=== PATIENT | female | born 1940 | race Caucasian/White ===

== ENCOUNTER 2018-05-20 15:24 | Outpatient (CLI) | payer MEDICARE, OTHER | END 2018-05-20 15:25 | disposition home or self-care (01) | LOC: DI 15:24 | PROVIDERS: ATTEND Family Medicine | DX: Z12.31 Encounter for screening mammogram for malignant neoplasm of breast (principal) | CPT/HCPCS: 77067 ==

== ENCOUNTER 2020-03-01 12:56 | Outpatient (CLI) | payer MEDICARE, OTHER ==
[2020-03-01 20:15] LABS: BASOPHILS # (AUTO) 0.1 10^3/uL (0.0-0.1); EOSINOPHILS # (AUTO) 0.1 10^3/uL (0.0-0.7); EOSINOPHILS % (AUTO) 1.5 %; HGB - HEMOGLOBIN 15.2 g/dL (12.0-16.0); LYMPHOCYTES # (AUTO) 1.4 10^3/uL (1.5-3.5); LYMPHOCYTES % (AUTO) 23.8 %; MEAN CORPUSCULAR HEMOGLOBIN 32.5 pg (27.0-31.0); MEAN CORPUSCULAR HGB CONC 33.6 g/dL (32.0-36.0); MEAN PLATELET VOLUME 10.1 fL (7.9-10.8); MONOCYTES # (AUTO) 0.5 10^3/uL (0.0-1.0); MONOCYTES % (AUTO) 9.2 %; NEUTROPHILS # (AUTO) 3.8 10^3/uL (1.5-6.6); NEUTROPHILS % (AUTO) 64.2 %; PLT - PLATELET COUNT 215 10^3/uL (130-450); RED BLOOD COUNT 4.67 10^6/uL (4.20-5.40); RED CELL DISTRIBUTION WIDTH 13.1 % (12.0-15.0); WHITE BLOOD COUNT 5.9 x10^3/uL (4.8-10.8)
[2020-03-01 20:26] LABS: ALBUMIN 4.3 g/dL (3.2-5.5); ALBUMIN/GLOBULIN RATIO 1.7 (1.0-2.2); ALKALINE PHOSPHATASE 75 IU/L (42-121); ALT ALANINE AMINOTRANSFERASE 20 IU/L (10-60); AST ASPARTATE AMINOTRANSFERASE 17 IU/L (10-42); BUN - BLOOD UREA NITROGEN 19 mg/dL (6-20); CALCIUM 9.2 mg/dL (8.5-10.3); CARBON DIOXIDE - CO2 27 mmol/L (21-32); CHLORIDE 103 mmol/L (101-111); CHOL/HDL RATIO 5.1 (<4.4); CHOLESTEROL 253 mg/dL; CREATININE 0.9 mg/dL (0.4-1.0); GLUCOSE 92 mg/dL (70-100); HDL CHOLESTEROL 50 mg/dL; LDL CHOLESTEROL,CALCULATED 171 mg/dL; LDL/HDL RATIO 3.4 (<4.4); SODIUM 139 mmol/L (135-145); TOTAL PROTEIN 6.9 g/dL (6.7-8.2); VLDL CHOLESTEROL 32 mg/dL
[2020-03-01 20:40] LABS: FERRITIN 139.4 ng/mL (11.0-306.8)
== END 2020-03-01 12:57 | disposition home or self-care (01) ==
LOC: LAB.S 12:56
PROVIDERS: ATTEND Nurse Practitioner Family
DX: R07.9 Chest pain, unspecified (principal); I10 Essential (primary) hypertension; G60.9 Hereditary and idiopathic neuropathy, unspecified; E78.5 Hyperlipidemia, unspecified
CPT/HCPCS: 36415; 80053; 80061; 82607; 82728; 83721; 84443; 85025

== ENCOUNTER 2020-03-18 12:05 | Outpatient (CLI) | payer MEDICARE, OTHER ==
[2020-03-18 17:05] LABS: CALCIUM 9.5 mg/dL (8.5-10.3); CREATININE 0.9 mg/dL (0.4-1.0)
== END 2020-03-18 12:06 | disposition home or self-care (01) ==
LOC: LAB.S 12:05
DX: I10 Essential (primary) hypertension (principal)
CPT/HCPCS: 36415; 80048

== ENCOUNTER 2020-05-01 10:25 | Emergency (ER) | payer MEDICARE, OTHER ==
--- NOTE | 2020-05-01 13:28 | XRAY Report ---
PROCEDURE: Chest 1 View X-Ray INDICATIONS: Chest Pain TECHNIQUE: One view of the chest was acquired. COMPARISON: None. FINDINGS: Surgical changes and devices: None. Lungs and pleura: No pleural effusions or pneumothorax. Lungs are clear. Mediastinum: Mediastinal contours appear normal. Heart size is normal. Bones and chest wall: No suspicious bony lesions. Overlying soft tissues appear unremarkable. IMPRESSION: Chest without acute cardiopulmonary abnormalities. No focal airspace disease. Reviewed by: Floyd Wayne MD on 05/01/2020 1:27 PM PDT Approved by: Floyd Wayne MD on 05/01/2020 1:27 PM PDT Station ID: [id number]
--- NOTE | 2020-05-01 13:48 | ED Physician Documentation ---
History of Present Illness - Stated complaint Stated Complaint: DIZZINESS/HIGH HR - Chief complaint Chief Complaint: Neuro - Additonal information Additional information: 79-year-old female presents to the emergency department for evaluation of dizziness and concerns of elevated high blood pressure especially at nighttime. She reports that last night she got up to go to the restroom and was unable to walk without assistance from her or holding onto the wall because she felt dizzy. She states that recently she has been having problems with an elevated blood pressure especially at night. She states that last week she did have a stress test and was told that she had some minor blockage in her heart that would not require stenting or CABG. She reports compliance with her medications. She denies that she has chest pain at present but she does endorse a minor headache pt is noted to be in atrial fibrillation here in the ED. states that she has occasionally been in fib, but is not on anticoagulation. when pt got up to ambulate to the bathroom and returned, she was then in sinus rythm Cardiology: Zay () PCP: Dr. Baum ([facility] [place]) meds: hctz 25 mg qd atenolol 25 mg bid amlodipine 5 mg BID Statin qd asa 81 mg qd PD PAST MEDICAL HISTORY - Past Medical History Past Medical History: Yes Cardiovascular: Hypertension, High cholesterol, Other Respiratory: None Neuro: None Endocrine/Autoimmune: None GI: None CERAMIC PLATER: None : None HEENT: None Psych: Anxiety Musculoskeletal: None Derm: None Other Past Medical History: Right renal artery Aneurysm repair - Past Surgical History Past Surgical History: Yes General: Appendectomy /CERAMIC PLATER: section Cardiovascular: Other - Allergies Allergies/Adverse Reactions: Allergies Allergy/AdvReac Type Severity Reaction Status Date / Time Sulfa (Sulfonamide Allergy Rash Verified 05/01/20 10:44 Antibiotics) - Social History Does the pt smoke?: No Smoking Status: Never smoker Does the pt drink ETOH?: Yes Does the pt have substance abuse?: No - Immunizations Immunizations are current?: Yes - POLST Patient has POLST: No PD ED PE EXPANDED - General General: Alert, No acute distress, Well developed/nourished - HEENT HEENT: Atraumatic, PERRL, EOMI - Eyes Eyes: PERRL, Normal accommodation - Neck Neck: Supple w/out meningeal sx. No: Adenopathy, Thyroid enlarged / mass - Cardiac Cardiac: Irregularly irregular, Radial strong equal, Femoral strong equal, Pedal strong equal, Cap refill < 2 sec. No: Murmur Present - Respiratory Respiratory: Clear to ausultation sacha. No: Distress, Labored - Abdomen Abdomen: Normal Bowel sounds. No: Tender to palpation - Derm Derm: Normal color, Warm and dry, Pale. No: Petecchiae, Purpura - Extremities Extremities: Normal - Neuro Neuro: Alert and Oriented X 3, CNII-XII intact, PERRL, Normal gait, Normal finger nose, Normal speech (normal rapid alternating, negative romberg, normal gair). No: Nystagmus - GCS Eye Opening: Spontaneous Motor: Obeys Commands Verbal: Oriented Total: 15 Results - Vitals Vitals: Vital Signs - 24 hr 05/01/20 05/01/20 05/01/20 10:44 12:44 14:02 Temperature 36.7 C Heart Rate 62 96 76 Respiratory 18 18 18 Rate Blood Pressure 161/60 H 156/76 H 106/86 H O2 Saturation 100 100 100 05/01/20 05/01/20 14:11 15:32 Temperature Heart Rate 69 60 Respiratory 20 16 Rate Blood Pressure 141/72 H 126/60 O2 Saturation 100 100 Oxygen O2 Source Room air - EKG (time done) 1317 Rate: Rate (enter#) (85) Rhythm: Atrial fibrillation [place]: Other Intervals: Normal MT QRS: LVH Ischemia: Non specific changes Compare to prior EKG: Old EKG unavailable Computer interpretation: Agree with computer 1557 Rate: Rate (enter#) (61) Rhythm: NSR [place]: Normal Intervals: Normal MT QRS: Normal Ischemia: Non specific changes Compare to prior EKG: Changed from prior EKG (now in sinus rythm) Computer interpretation: Agree with computer - Labs Labs: Laboratory Tests 05/01/20 05/01/20 05/01/20 14:03 14:03 14:03 WBC 7.8 RBC 5.21 Hgb 17.0 H Hct 48.9 H MCV 93.9 MCH 32.6 H MCHC 34.8 RDW 13.0 Plt Count 241 MPV 9.2 Neut # (Auto) 4.4 Lymph # (Auto) 2.5 Bent # (Auto) 0.7 Eos # (Auto) 0.1 Baso # (Auto) 0.1 Absolute Nucleated RBC 0.00 Nucleated RBC % 0.0 Sodium 142 Potassium 3.2 L Chloride 99 L Carbon Dioxide 28 Anion Gap 15.0 H BUN 18 Creatinine 0.9 Estimated GFR (MDRD) 61 L Glucose 118 H Calcium 10.4 H Total Bilirubin 1.2 H AST 21 ALT 22 Alkaline Phosphatase 95 Troponin I High Sens 7.8 Total Protein 8.5 H Albumin 4.7 Globulin 3.8 Albumin/Globulin Ratio 1.2 Lipase 37 TSH 05/01/20 14:03 WBC RBC Hgb Hct MCV MCH MCHC RDW Plt Count MPV Neut # (Auto) Lymph # (Auto) Bent # (Auto) Eos # (Auto) Baso # (Auto) Absolute Nucleated RBC Nucleated RBC % Sodium Potassium Chloride Carbon Dioxide Anion Gap BUN Creatinine Estimated GFR (MDRD) Glucose Calcium Total Bilirubin AST ALT Alkaline Phosphatase Troponin I High Sens Total Protein Albumin Globulin Albumin/Globulin Ratio Lipase TSH 0.81 - Rads (name of study) CXR Radiology: Final report received (no acute cardiopulmonary disease) MRI brain Radiology: Final report received PD MEDICAL DECISION MAKING - ED course Complexity details: reviewed results, re-evaluated patient, considered differential, d/w patient, d/w family ED course: 79-year-old female presents to the emergency department for evaluation of vertigo this morning and last night when she got out of bed. She was initially noted to be in atrial fibrillation when she arrived to the ER but after ambulation she converted to sinus rhythm. She does report that at times in the past she has been in atrial fib. She is not anticoagulated. Given the history of the vertigo and possible ataxia we were able to pursue an MRI here in the emergency department. Reassuringly it did not show any acute intracranial disease process such as CVA. Here in the ER her neuro cerebral and cerebellar exam has been unremarkable no focal deficits. Did express concern to me that her blood pressure is at times elevated especially at night however her blood pressures here have been fairly normal without findings of accelerated hypertension Her EKG was initially atrial fibrillation but she converted to sinus and has remained in sinus throughout the course of her ED stay.High sensitivity troponin was negative. she deneis chest pain. in addition she reports a stress test last week thru and is followed by cardiology there. She reports to me that at points in the past she has been in atrial fibrillation but it is not sustained. As she leaves the ER she is in sinus rhythm. I will recommend that she continue to take the aspirin daily. Advised to return to the ER for any focal neuro deficits, chest pain syncope or return of her altered gait Departure - Departure Disposition: 01 Home, Self Care Clinical Impression: Dizziness Atrial fibrillation Qualifiers: Atrial fibrillation type: paroxysmal Qualified Code(s): I48.0 - Paroxysmal atrial fibrillation Condition: Stable Record reviewed to determine appropriate education?: Yes Instructions: Atrial Fibrillation Dc, ED Vertigo Unspecified Follow-Up: HANNAH ALEJANDRO MD [Primary Care Provider] - Comments: The MRI of your brain did not show findings that are consistent with a stroke. Your EKG when you presented to the emergency department showed that you were in atrial fibrillation however shortly after arriving you converted to sinus rhythm. I recommend that you continue to take the aspirin daily as prescribed. I would also discuss the intermittent atrial fibrillation with your hotel concierge and ask if you should at any point be started on anticoagulation. The rest of your labs were essentially normal today. I recommend close follow- up with your primary care doctor. If at any point you have fevers, slurred speech droopy face cannot walk normally or feel that your symptoms are not well controlled please return to the emergency department
[2020-05-01] MEDS ORDERED: LORazepam 2 MG/ML VIAL IVP STA (14:04)
[2020-05-01 14:09] LABS: BASOPHILS # (AUTO) 0.1 10^3/uL (0.0-0.1); EOSINOPHILS # (AUTO) 0.1 10^3/uL (0.0-0.7); EOSINOPHILS % (AUTO) 0.9 %; LYMPHOCYTES # (AUTO) 2.5 10^3/uL (1.5-3.5); LYMPHOCYTES % (AUTO) 32.4 %; MEAN CORPUSCULAR HEMOGLOBIN 32.6 pg (27.0-31.0); MEAN CORPUSCULAR HGB CONC 34.8 g/dL (32.0-36.0); MEAN CORPUSCULAR VOLUME 93.9 fL (81.0-99.0); MEAN PLATELET VOLUME 9.2 fL (7.9-10.8); MONOCYTES # (AUTO) 0.7 10^3/uL (0.0-1.0); MONOCYTES % (AUTO) 8.8 %; NEUTROPHILS # (AUTO) 4.4 10^3/uL (1.5-6.6); NEUTROPHILS % (AUTO) 56.6 %; PLT - PLATELET COUNT 241 10^3/uL (130-450); RED BLOOD COUNT 5.21 10^6/uL (4.20-5.40); WHITE BLOOD COUNT 7.8 x10^3/uL (4.8-10.8)
[2020-05-01 14:22] LABS: ALBUMIN 4.7 g/dL (3.2-5.5); ALBUMIN/GLOBULIN RATIO 1.2 (1.0-2.2); BILIRUBIN,TOTAL 1.2 mg/dL (0.2-1.0); CALCIUM 10.4 mg/dL (8.5-10.3); CREATININE 0.9 mg/dL (0.4-1.0); TOTAL PROTEIN 8.5 g/dL (6.7-8.2)
[2020-05-01] MEDS ORDERED: SODIUM CHLORIDE 0.9% 1,000 ML IV STA (14:45)
--- NOTE | 2020-05-01 15:35 | MRI Report ---
PROCEDURE: Brain W/O INDICATIONS: ataxia last noc; r/o stroke TECHNIQUE: Noncontrast axial T1 spin echo, axial T2 fast spin echo, sagittal and axial FLAIR, coronal T2 fast sp in echo, axial gradient echo, axial diffusion and ADC through the brain. COMPARISON: None. FINDINGS: Image quality: Limited by patient motion artifact. CSF Spaces: Basal cisterns are patent. No extra-axial fluid collections. Ventricles are normal in size and shape. Brain: No intracranial masses or hemorrhage. [place]/white matter interface is normal. There is mild, diffuse cerebral volume loss. There is minimal periventricular and subcortical white matter chronic m icrovascular ischemic change. Brainstem appears normal. Diffusion-weighted images demonstrate no acu te ischemic insult. No chronic ischemic insults. Normal intravascular flow voids are present. Skull and face: Calvarium has normal marrow signal. Orbits appear normal. Sinuses: Sinuses and mastoids are clear. IMPRESSION: 1. Image quality limited by patient motion artifact. 2. No definite acute intracranial disease process. 3.No areas of acute or chronic infarction. 4. No abnormal intracranial mass or mass effect. 5. Mild, diffuse cerebral volume loss. 6. Minimal periventricular and subcortical white matter chronic microvascular ischemic change. Reviewed by: Kari Hines MD, PhD on 05/01/2020 3:34 PM PDT Approved by: Kari Hines MD, PhD on 05/01/2020 3:34 PM PDT Station ID: [id number]
[2020-05-01] MEDS ORDERED: POTASSIUM CHLORIDE 20 MEQ TABLET PO STA (15:45)
[2020-05-01 16:37] VITALS: BP 126/62
== END 2020-05-01 16:40 | disposition home or self-care (01) ==
LOC: ED 10:25
DX: R42 Dizziness and giddiness (principal); I48.0 Paroxysmal atrial fibrillation
CPT/HCPCS: 36415; 70551; 71045; 80053; 83690; 84443; 84484; 85025; 93005; 96361; 96374; 99281; 99284; A9270; J2060

== ENCOUNTER 2020-05-27 17:37 | Emergency (ER) | payer MEDICARE, OTHER ==
[2020-05-27 18:45] LABS: BASOPHILS # (AUTO) 0.1 10^3/uL (0.0-0.1); BASOPHILS % (AUTO) 1.2 %; EOSINOPHILS # (AUTO) 0.1 10^3/uL (0.0-0.7); EOSINOPHILS % (AUTO) 1.3 %; HGB - HEMOGLOBIN 14.5 g/dL (12.0-16.0); LYMPHOCYTES # (AUTO) 1.7 10^3/uL (1.5-3.5); MEAN CORPUSCULAR HEMOGLOBIN 32.5 pg (27.0-31.0); MEAN CORPUSCULAR VOLUME 95.5 fL (81.0-99.0); MEAN PLATELET VOLUME 9.3 fL (7.9-10.8); MONOCYTES # (AUTO) 0.8 10^3/uL (0.0-1.0); MONOCYTES % (AUTO) 12.2 %; PLT - PLATELET COUNT 229 10^3/uL (130-450); RED BLOOD COUNT 4.46 10^6/uL (4.20-5.40); RED CELL DISTRIBUTION WIDTH 12.6 % (12.0-15.0); WHITE BLOOD COUNT 6.7 x10^3/uL (4.8-10.8)
--- NOTE | 2020-05-27 18:49 | XRAY Report ---
PROCEDURE: Chest 1 View X-Ray INDICATIONS: Chest Pain TECHNIQUE: One view of the chest was acquired. COMPARISON: None. FINDINGS: Surgical changes and devices: None. Lungs and pleura: No pleural effusions or pneumothorax. Lungs are clear. Mediastinum: Mediastinal contours appear normal. Heart size is normal. Bones and chest wall: No suspicious bony lesions. Overlying soft tissues appear unremarkable. IMPRESSION: No acute disease Reviewed by: Grabiel Denise MD on 05/27/2020 6:47 PM PDT Approved by: Grabiel Denise MD on 05/27/2020 6:47 PM PDT Station ID: [id number]
[2020-05-27 18:56] LABS: ALBUMIN 4.2 g/dL (3.2-5.5); ALBUMIN/GLOBULIN RATIO 1.4 (1.0-2.2); BILIRUBIN,TOTAL 0.9 mg/dL (0.2-1.0); CALCIUM 9.6 mg/dL (8.5-10.3); CREATININE 0.9 mg/dL (0.4-1.0); TOTAL PROTEIN 7.3 g/dL (6.7-8.2)
--- NOTE | 2020-05-27 19:11 | ED Physician Documentation ---
History of Present Illness - Stated complaint Stated Complaint: HIGH BP,HEAD PRESSURE,SLIGHT CP - Chief complaint Chief Complaint: Cardiac - History obtained from History obtained from: Patient, Family - History of Present Illness Timing: Today Pain level max: 3 Pain level now: 0 - Additonal information Additional information: 79-year-old female presents to the emergency department complaining that her blood pressure has been high intermittently over the past several months. She states it has spiked up as high as 190. She states that occasionally she has a headache, none now. She states occasionally she gets left-sided chest pain, none now. The pain is sharp, nonradiating. Nothing seems to make it better or worse. Last for 1 to 2 minutes at a time. No focal neurological deficits. No dizziness. Occasionally feels a pressure in the back of her head that she describes as a headache. She states that she takes her blood pressure 7-8 times per day. Review of Systems Constitutional: denies: Fever, Chills Eyes: denies: Decreased vision, Photophobia Ears: denies: Ear pain Nose: denies: Rhinorrhea / runny nose, Congestion Throat: denies: Sore throat Cardiac: denies: Palpitations Respiratory: denies: Cough GI: denies: Vomiting, Diarrhea Skin: denies: Rash Musculoskeletal: denies: Neck pain, Back pain Neurologic: denies: Seizure, Confused, Head injury, LOC PD PAST MEDICAL HISTORY - Past Medical History Cardiovascular: Hypertension, High cholesterol, Other Respiratory: None Neuro: None Endocrine/Autoimmune: None GI: None CHIN STRAP SEWER: None : None HEENT: None Psych: Anxiety Musculoskeletal: None Derm: None - Past Surgical History Past Surgical History: Yes General: Appendectomy /CHIN STRAP SEWER: section Cardiovascular: Other - Allergies Allergies/Adverse Reactions: Allergies Allergy/AdvReac Type Severity Reaction Status Date / Time Sulfa (Sulfonamide Allergy Rash Verified 05/01/20 10:44 Antibiotics) - Social History Does the pt smoke?: No Smoking Status: Never smoker Does the pt drink ETOH?: Yes Does the pt have substance abuse?: No - Immunizations Immunizations are current?: Yes - POLST Patient has POLST: No PD ED PE NORMAL - Vitals Vital signs reviewed: Yes - General General: Alert and oriented X 3, No acute distress - HEENT HEENT: Atraumatic, PERRL, EOMI, Moist mucous membranes - Neck Neck: Supple, no meningeal sign, No JVD, No bruit - Cardiac Cardiac: RRR, No murmur, Strong equal pulses - Respiratory Respiratory: No respiratory distress, Clear bilaterally - Abdomen Abdomen: Soft, Non tender, Non distended - Derm Derm: Warm and dry - Extremities Extremities: No calf tenderness / cord - Neuro Neuro: Alert and oriented X 3, replenishment specialist 2-12 intact, No motor deficit, No sensory deficit, Normal speech Eye Opening: Spontaneous Motor: Obeys Commands Verbal: Oriented GCS Score: 15 - Psych Psych: Normal mood, Normal affect Results - Vitals Vitals: Vital Signs - 24 hr 05/27/20 05/27/20 05/27/20 17:52 18:02 19:16 Temperature 36.8 C Heart Rate 77 60 Respiratory 20 16 Rate Blood Pressure 165/72 H 138/77 H Blood Pressure 165/72 H [Left] Blood Pressure 143/62 H [Right] O2 Saturation 99 99 Oxygen O2 Source Room air - EKG (time done) 1801 Rate: Rate (enter#) (71) Rhythm: NSR [place]: Normal Intervals: Normal [place] QRS: Normal Ischemia: Normal ST segments - Labs Labs: Laboratory Tests 05/27/20 05/27/20 05/27/20 18:30 18:30 18:30 WBC 6.7 RBC 4.46 Hgb 14.5 Hct 42.6 MCV 95.5 MCH 32.5 H MCHC 34.0 RDW 12.6 Plt Count 229 MPV 9.3 Neut # (Auto) 4.0 Lymph # (Auto) 1.7 [place] # (Auto) 0.8 Eos # (Auto) 0.1 Baso # (Auto) 0.1 Absolute Nucleated RBC 0.00 Nucleated RBC % 0.0 Sodium 142 Potassium 3.7 Chloride 105 Carbon Dioxide 25 Anion Gap 12.0 BUN 17 Creatinine 0.9 Estimated GFR (MDRD) 61 L Glucose 130 H Calcium 9.6 Total Bilirubin 0.9 AST 16 ALT 20 Alkaline Phosphatase 80 Troponin I High Sens 5.6 Total Protein 7.3 Albumin 4.2 Globulin 3.1 Albumin/Globulin Ratio 1.4 Lipase 39 - Rads (name of study) cxr Radiology: Prelim report reviewed, EMP read contemporaneously, See rad report (No acute disease ) PD MEDICAL DECISION MAKING - ED course Complexity details: reviewed results, re-evaluated patient, considered differential (No ST elevation [place], no aortic dissection, no PE, no tension pneumothorax, no aortic aneurysm), d/w patient ED course: Patient is asymptomatic in the emergency department. Blood pressure decreased on its own. No sign of stroke. NIH stroke scale of 0. Normal cardiac enzymes. No acute findings on EKG. We will have her follow-up with her doctor for further care. No emergency medical condition at this time. Patient counseled regarding signs and symptoms for which I believe and urgent re-evaluation would be necessary. Patient with good understanding of and agreement to plan and is comfortable going home at this time This document was made in part using voice recognition software. While efforts are made to proofread this document, sound alike and grammatical errors may occur. Departure - Departure Disposition: 01 Home, Self Care Clinical Impression: Atypical chest pain Hypertension Qualifiers: Hypertension type: unspecified Qualified Code(s): I10 - Essential (primary) hypertension Condition: Good Instructions: ED Chest Pain Atypical Unkn Cause, ED HTN Established Follow-Up: Buck Devlin MD [Primary Care Provider] - Within 1 week Comments: Follow up with your doctor for further care. Return if you worsen. You should only be checking your blood pressure once a day at the most. Discharge Date/Time: 05/27/20 19:16
[2020-05-27 19:17] VITALS: BP 138/77
== END 2020-05-27 19:16 | disposition home or self-care (01) ==
LOC: ED 17:37
DX: R07.89 Other chest pain (principal); I10 Essential (primary) hypertension
CPT/HCPCS: 36415; 71045; 80053; 83690; 84484; 85025; 93005; 99284

== ENCOUNTER 2020-07-26 09:19 | Outpatient (CLI) | payer MEDICARE, OTHER ==
--- NOTE | 2020-07-26 14:53 | Ultrasound Report ---
PROCEDURE: Arterial Visceral Complete INDICATIONS: HTN TECHNIQUE: Real time scanning was performed of the aorta, celiac trunk, superior and inferior mesent machelle arteries, with color and pulsed Doppler interrogation of the mesenteric vessels. COMPARISON: Not available. FINDINGS: Aortic peak systolic velocity: 88 cm/s. Right kidney: Ozuna-scale imaging: Kidney is 8.3 cm long; renal cortical thickness is 0.8 cm. No hydronephrosis. No nephrolithiasis. Renal cortex is normal in echogenicity. No suspicious solid renal masses. Proximal renal artery peak systolic velocity: 151 Cm/s. Mid renal artery peak systolic velocity: 187 Cm/s. Distal renal artery peak systolic velocity: 103 Cm/s. Renal vein: Patent, without thrombus. Peak renal/aortic ratio (RAR): 1.2-2.1. Left kidney: Ozuna-scale imaging: Kidney is 9.7 cm long; renal cortical thickness is 1.0 cm. No hydronephrosis. No nephrolithiasis. Renal cortex is normal in echogenicity. No suspicious solid renal masses. Kidne y Proximal renal artery peak systolic velocity: 97 cm/s. Mid-renal artery peak systolic velocity: 103 cm/s. Distal renal artery peak systolic velocity: 59 cm/s. Renal vein: Patent, without thrombus. Peak renal/aortic ratio (RAR): 0.6-1.2. IMPRESSION: 1. Less than 60% stenosis of the mid right renal artery. 2. No left renal artery stenosis based on ultrasound criteria. Reviewed by: Shana Mendez MD on 07/26/2020 2:52 PM PST Approved by: Shana Mendez MD on 07/26/2020 2:52 PM PST Station ID: [id number]
== END 2020-07-26 09:20 | disposition home or self-care (01) ==
LOC: DI 09:19
PROVIDERS: ATTEND Internal Medicine
DX: I10 Essential (primary) hypertension (principal)
CPT/HCPCS: 93975

== ENCOUNTER 2020-10-09 07:55 | Outpatient (CLI) | payer MEDICARE, OTHER ==
--- NOTE | 2020-10-16 12:16 | Mammography Report ---
BILATERAL DIGITAL SCREENING MAMMOGRAM 3D/2D: 10/09/2020 CLINICAL: Routine screening. Comparison is made to exams dated: 05/20/2018 mammogram - [facility], 05/20/2016 [facility], and 03/01/2015 mammogram - [facility]. The tissue of both breasts is predominantly fatty. No significant masses, calcifications, or other findings are seen in either breast. There has been no significant interval change. IMPRESSION: NEGATIVE There is no mammographic evidence of malignancy. A 1 year screening mammogram is recommended. This exam was interpreted at Station ID: [id number]. NOTE: For mammograms, a report in lay terms will be sent to the patient. Approximately 15% of breast malignancies will not be visualized mammographically. In the management of a palpable breast mass, a negative mammogram must not discourage biopsy of a clinically suspicious lesion. Electronically Signed By: Sarath Jon acr/penrad:10/16/2020 09:35:49 ACR BI-RADS Category 1: Negative 3341F PARENCHYMAL PATTERN: (F) - The breast(s) demonstrate(s) diffuse fatty replacement. BI-RADS CATEGORY: (1) - 1 RECOMMENDATION: (ANNUAL) - Recommend routine annual screening mammography. [id number] 1 year screening LATERALITY: (B)
== END 2020-10-09 07:56 | disposition home or self-care (01) ==
LOC: DI.S 07:55
PROVIDERS: ATTEND Internal Medicine
DX: Z12.31 Encounter for screening mammogram for malignant neoplasm of breast (principal)

== ENCOUNTER 2021-09-17 12:29 | Outpatient (CLI) | payer MEDICARE, OTHER ==
--- NOTE | 2021-09-17 16:24 | XRAY Report ---
PROCEDURE: Chest 2 View X-Ray INDICATIONS: CHEST XRAY TECHNIQUE: 2 view(s) of the chest. COMPARISON: 05/27/2020. FINDINGS: Surgical changes and devices: None. Lungs and pleura: No pleural effusions or pneumothorax. Small patchy opacities noted in the lingula left upper lobe at the left lung base could represent atelectasis versus pneumonia. Mediastinum: Mediastinal contours are normal. Heart size is normal. Bones and chest wall: No suspicious bony abnormalities. Spine degenerative disc changes. Soft tissue s appear unremarkable. IMPRESSION: Left basilar atelectasis versus pneumonia. Reviewed by: Kari Hines MD, PhD on 09/17/2021 4:23 PM PST Approved by: Kari Hines MD, PhD on 09/17/2021 4:23 PM PST Station ID: [id number]
== END 2021-09-17 12:30 | disposition home or self-care (01) ==
LOC: DI.S 12:29
PROVIDERS: ATTEND Internal Medicine
DX: R07.9 Chest pain, unspecified (principal); R91.8 Other nonspecific abnormal finding of lung field

== ENCOUNTER 2021-10-22 09:14 | Outpatient (CLI) | payer MEDICARE, OTHER ==
--- NOTE | 2021-10-22 09:30 | CARDIAC PROCEDURE NOTE ---
Stress Test Report Service Date: 10/22/21 Service Time: 09:30 Ordering Provider: Charli Baum MD Indication for Test: Assess for ischemic contribution to exertional dyspnea and intermittent chest discomfort. Significant Medical History: -Radha reports experiencing a decline in her activity level about 14 months ago, due to worsened sciatica and other musculoskeletal issues. As these symptoms became less limiting she found that her exertional tolerance was reduced and did not "bounce back" as she expected. She has continued having dyspnea walking up hills and stairs that is greater than she experienced prior to this time of forced exertional decrease. Sometimes she has also noted associated discomfort in the left parasternal area with exertion, not associated with diaphoresis or lightheadedness and resolving within 5 minutes of resting. Overall this pattern of exertional dyspnea and occasional chest discomfort is stable and she is still able to walk several times per week, up to 3 miles. -She has been treated for hypertension for about 5 years, and within the past year had losartan added to her prior atenolol. She tells me that after she changed the atenolol dosing from 50 mg QAM to 25 mg BID her BPs were lower and she was able to stop taking the losartan, with recent values on home monitoring with an arm cuff ranging from the 120's-low 140's/70's-80's. While in [place] last spring she was also having palpitations, and believes that an ambulatory monitor study may have shown atrial fibrillation, for which treatment with Eliquis was offered and declined; she does not believe that the report of this study made it back to her [facility] provider, Dr Baum. She denies experiencing any palpitations in the last several months, however. Cardiac Risk Factors: Positive for treated hypertension and hyperlipidemia, negative for tobacco smoking and diabetes. Her mother had a stroke in her early 80's but she is unaware of close relatives having coronary heart disease. Type of Stress Test: ETT with Echocardiography Procedure: -Exercise Treadmill Test- After signing informed consent, the patient performed underwent resting echo imaging and then performed treadmill exercise using a Woo protocol. The patient exercised for 5 minutes 21 seconds and achieved a peak heart rate of 140 (98 percent predicted maximum heart rate for age), and an estimated workload of 7.1 METS. The test was terminated due to fatigue/shortness of breath. Resting heart rate: 77 Peak heart rate: 140 Normal response to exercise. Resting BP: 204/84 Peak BP: 206/104 Markedly hypertensive at rest with failure to augment systolic BP response to exercise; maximal DBP was 140 with SBP 203 in early recovery. Note that patient withheld her atenolol dose after yesterday's early AM dose. Rhythm during exercise: Sinus rhythm throughout, with occasional PACs occurring as isolated beats and couplets. No AFib observed. Symptoms: Her dyspnea increased rather precipitously in late stage 2, prompting test discontinuation; she denied experiencing any chest discomfort. EKG at rest showed normal sinus rhythm, normal in all aspects. EKG at peak stress showed J-point depression with upsloping ST segments, NOT clearly meeting diagnostic criteria for ischemia. In Recovery heart rate rapidly/normally returned to baseline, while BP declined more slowly, remaining elevated (187/72) at 5 minutes. Echo imaging performed at rest and with stress will be reported separately. IRichard MD, was present throughout this treadmill stress test and supervised it in its entirety. Summary: 1) Exercise tolerance modestly reduced for age as evidenced by TATIANA of 8.2%. 2) Normal resting EKG. 3) Adequate level of exercise was achieved on this treadmill stress test. 4) Markedly elevated BP at rest with abnormal failure to augment systolic BP in response to exercise, with abnormal diastolic BP increase. 5) No ischemic changes by EKG criteria were seen at peak stress. 6) Echo image interpretation reveals normal left ventricular size and systolic function at rest, with appropriate hyperdynamic augmentation of all segments with stress, indicative of no evidence of prior infarct or inducible ischemia. CONCLUSIONS: 1) No symptom, EKG or echocardiographic evidence of inducible ischemia. 2) Suspect exertional limitation is due at least in part to hypertension and associated diastolic dysfunction, with vulnerability to atrial fibrillation. She is encouraged to re-assess adequacy of current HTN treatment given recent self- discontinuation of losartan. 3) Patient was also urged to seek the report of prior monitoring study for review with her primary provider and/or consider repeat rhythm monitoring.
== END 2021-10-22 09:15 | disposition home or self-care (01) ==
LOC: DI 09:14
PROVIDERS: ATTEND Internal Medicine
DX: R06.09 Other forms of dyspnea (principal); I10 Essential (primary) hypertension; E78.5 Hyperlipidemia, unspecified
CPT/HCPCS: 93350

== ENCOUNTER 2021-11-15 15:14 | Outpatient (CLI) | payer MEDICARE, OTHER ==
[~2021-11-15 15:14] MED LIST: IOVERSOL 320 100 ML VIAL IVP ONE
[2021-11-15] MEDS ORDERED: IOVERSOL 320 100 ML VIAL IVP ONE (15:58)
== END 2021-11-15 15:15 | disposition home or self-care (01) ==
LOC: DI 15:14
PROVIDERS: ATTEND Internal Medicine
DX: Z53.9 Procedure and treatment not carried out, unspecified reason (principal)

== ENCOUNTER 2021-12-30 08:00 | Outpatient (CLI) | payer MEDICARE, OTHER | END 2021-12-30 23:59 | disposition home or self-care (01) | LOC: LAB.S 08:00 | PROVIDERS: ATTEND Physician Assistant Medical | DX: U07.1 COVID-19 (principal) | CPT/HCPCS: 87275; 87276; U0004 ==

== ENCOUNTER 2022-06-18 12:14 | Outpatient (CLI) | payer MEDICARE, OTHER ==
[2022-06-18 14:23] LABS: BILIRUBIN,URINE NEGATIVE (NEGATIVE); GLUCOSE, URINE (UA) NEGATIVE (NEGATIVE); KETONES,URINE (UA) NEGATIVE (NEGATIVE); LEUKOCYTE ESTERASE, URINE NEGATIVE (NEGATIVE); NITRITE,URINE NEGATIVE (NEGATIVE); OCCULT BLOOD,URINE NEGATIVE (NEGATIVE); PROTEIN,URINE NEGATIVE (NEGATIVE); UROBILINOGEN,URINE 0.2 (NORMAL) E.U./dL (NORMAL)
[2022-06-18 14:34] LABS: BACTERIA,URINE Rare /HPF (None Seen); CLARITY,URINE CLEAR (CLEAR); RBC,URINE 0-5 /HPF (0-5); SQUAMOUS EPITHELIAL CELL,UR RARE Squamous (<= Few); WBC,URINE 0-3 /HPF (0-5)
== END 2022-06-18 12:15 | disposition home or self-care (01) ==
LOC: LAB.S 12:14
DX: N20.0 Calculus of kidney (principal)
CPT/HCPCS: 81001; 81003; 87086

== ENCOUNTER 2022-07-18 08:00 | Outpatient (CLI) | payer MEDICARE, OTHER ==
[2022-07-18 16:04] LABS: BILIRUBIN,URINE NEGATIVE (NEGATIVE); GLUCOSE, URINE (UA) NEGATIVE (NEGATIVE); KETONES,URINE (UA) NEGATIVE (NEGATIVE); LEUKOCYTE ESTERASE, URINE TRACE (NEGATIVE); NITRITE,URINE NEGATIVE (NEGATIVE); OCCULT BLOOD,URINE LARGE (NEGATIVE); PROTEIN,URINE NEGATIVE (NEGATIVE); UROBILINOGEN,URINE 0.2 (NORMAL) E.U./dL (NORMAL)
[2022-07-18 16:08] LABS: CLARITY,URINE CLEAR (CLEAR)
[2022-07-18 16:15] LABS: BACTERIA,URINE Rare /HPF (None Seen); SQUAMOUS EPITHELIAL CELL,UR FEW Squamous (<= Few)
== END 2022-07-18 23:59 | disposition home or self-care (01) ==
LOC: LAB.S 08:00
PROVIDERS: ATTEND Emergency Medicine
DX: R31.9 Hematuria, unspecified (principal)
CPT/HCPCS: 81001; 87077; 87086; 87181

== ENCOUNTER 2022-11-05 10:53 | Outpatient (CLI) | payer MEDICARE, OTHER ==
[2022-11-05 15:35] LABS: BILIRUBIN,URINE NEGATIVE (NEGATIVE); GLUCOSE, URINE (UA) NEGATIVE (NEGATIVE); KETONES,URINE (UA) NEGATIVE (NEGATIVE); LEUKOCYTE ESTERASE, URINE TRACE (NEGATIVE); NITRITE,URINE NEGATIVE (NEGATIVE); OCCULT BLOOD,URINE NEGATIVE (NEGATIVE); PROTEIN,URINE NEGATIVE (NEGATIVE); UROBILINOGEN,URINE 0.2 (NORMAL) E.U./dL (NORMAL)
[2022-11-05 16:05] LABS: BACTERIA,URINE Rare /HPF (None Seen); CLARITY,URINE CLEAR (CLEAR); RBC,URINE None Seen /HPF (0-5); SQUAMOUS EPITHELIAL CELL,UR RARE Squamous (<= Few); WBC,URINE 0-3 /HPF (0-5)
== END 2022-11-05 10:54 | disposition home or self-care (01) ==
LOC: LAB.S 10:53
PROVIDERS: ATTEND Physician Assistant Surgical
DX: N39.41 Urge incontinence (principal); R35.0 Frequency of micturition
CPT/HCPCS: 81001; 87086

== ENCOUNTER 2022-11-27 09:46 | Outpatient (CLI) | payer MEDICARE, OTHER ==
--- NOTE | 2022-11-28 07:07 | Ultrasound Report ---
PROCEDURE: Retroperitoneal INDICATIONS: NEPHROLITHIASIS TECHNIQUE: Real-time scanning was performed of the retroperitoneal organs, with image documentation. COMPARISON: None. FINDINGS: Kidneys: Kidneys are normal in size. Right kidney measures 9.1 cm long; left kidney measures 9.5 cm long. Right renal cortical thickness is 1.5 cm; left renal cortical thickness is 1.8 cm. No solid masses or nephrolithiasis. There is mild left hydronephrosis. Bladder: Pre-void bladder volume is 148 mL. Post-void residual is 16 mL. Pre-void images demonstra te no intraluminal masses or stones. On pre-void images, bilateral ureteral jets are noted with colo r Doppler interrogation. (Of note, ureteral jets may not be detectable in up to 25% of cases due to insufficient differences in specific gravity between ureteral and bladder urine). Miscellaneous: No free abdominal fluid. IMPRESSION: Mild left hydronephrosis without visualized calcification or mass lesion. As clinically indicated, fu rther evaluation with CT may be obtained to further identify source of obstruction. Reviewed by: Leydi Gonsalez MD on 11/27/2022 1:02 PM PDT Approved by: Leydi Gonsalez MD on 11/27/2022 1:02 PM PDT Station ID: [id number]
== END 2022-11-27 09:47 | disposition home or self-care (01) ==
LOC: DI 09:46
PROVIDERS: ATTEND Physician Assistant Surgical
DX: N20.0 Calculus of kidney (principal); N13.30 Unspecified hydronephrosis

== ENCOUNTER 2023-01-06 09:17 | Outpatient (CLI) | payer MEDICARE, OTHER ==
[2023-01-06 15:21] LABS: THYROID STIMULATING HORMONE 1.26 uIU/mL (0.34-5.60)
[2023-01-06 15:37] LABS: ALBUMIN 3.7 g/dL (3.2-5.5); ALBUMIN/GLOBULIN RATIO 1.2 (1.0-2.2); ALKALINE PHOSPHATASE 67 IU/L (42-121); ALT ALANINE AMINOTRANSFERASE 17 IU/L (10-60); AST ASPARTATE AMINOTRANSFERASE 18 IU/L (10-42); BUN - BLOOD UREA NITROGEN 18 mg/dL (6-20); CALCIUM 9.3 mg/dL (8.5-10.3); CARBON DIOXIDE - CO2 28 mmol/L (21-32); CHLORIDE 105 mmol/L (101-111); CHOL/HDL RATIO 3.5 (<4.4); CHOLESTEROL 194 mg/dL; CREATININE 0.9 mg/dL (0.4-1.0); GFR - MDRD 60 (>89); GLUCOSE 98 mg/dL (70-100); HDL CHOLESTEROL 55 mg/dL; LDL CHOLESTEROL,CALCULATED 118 mg/dL; LDL/HDL RATIO 2.1 (<4.4); SODIUM 141 mmol/L (135-145); TOTAL PROTEIN 6.8 g/dL (6.7-8.2); TRIGLYCERIDES 107 mg/dL; VLDL CHOLESTEROL 21 mg/dL
[2023-01-07 16:30] LABS: ESTIMATED AVERAGE GLUCOSE 105 mg/dL (70-100); HEMOGLOBIN A1c% 5.3 % (4.27-6.07)
== END 2023-01-06 09:18 | disposition home or self-care (01) ==
LOC: LAB.S 09:17
PROVIDERS: ATTEND Internal Medicine
DX: E78.5 Hyperlipidemia, unspecified (principal); N20.0 Calculus of kidney; G25.0 Essential tremor
CPT/HCPCS: 36415; 80053; 80061; 82306; 83036; 83721; 83970; 84443

== ENCOUNTER 2023-02-27 11:39 | Emergency (ER) | payer MEDICARE, OTHER ==
[2023-02-27 12:03] VITALS: BP 173/65
[2023-02-27] MEDS ORDERED: KETOROLAC 30 MG/ML VIAL IM STA (12:06)
--- NOTE | 2023-02-27 12:08 | ED Physician Documentation ---
History of Present Illness - Stated complaint Stated Complaint: SCIATICA PX - Chief complaint Chief Complaint: Back Pain - Additonal information Additional information: 82-year-old female presents to the emergency department for evaluation of reported flare of sciatica. States about for the last 10 days she has been having pain in her right low back that radiates down the leg. She states that she works very closely with physical therapy doing exercises and walking to prevent sciatica flares. No recent falls or trauma. Denies saddle anesthesia, loss of bowel or bladder function. She did take Tylenol which has helped the pain but finds it increasingly difficult to walk or get out of bed. She states that about 2 years ago in [place] she was hospitalized for a flare of sciatica. She states they gave her drugs while hospitalized that caused her to hallucinate. She is unsure if she was given narcotics or if she was given steroids but she would like to avoid these if possible. No fevers. Patient does report a history of paroxysmal A-fib for which she has been advised to start Eliquis but cannot yet afford the prescription. Review of Systems Constitutional: denies: Fever Musculoskeletal: reports: Back pain Neurologic: denies: Generalized weakness, Focal weakness Psychiatric: reports: Reviewed and negative PD PAST MEDICAL HISTORY - Past Medical History Cardiovascular: Hypertension, High cholesterol, Other Respiratory: None Neuro: None Endocrine/Autoimmune: None GI: None DESIGN ENGINEERING INTERN: None : None HEENT: None Psych: Anxiety Musculoskeletal: None Derm: None - Past Surgical History Past Surgical History: Yes General: Appendectomy /DESIGN ENGINEERING INTERN: section Cardiovascular: Other - Present Medications Home Medications: Ambulatory Orders Medication Instructions Recorded Confirmed Amlodipine Besylate [Norvasc] 2.5 mg PO DAILY 02/27/23 02/27/23 Losartan/Hydrochlorothiazide 1 each PO DAILY 02/27/23 02/27/23 [Losartan-Hctz 100-12.5 mg Tab] - Allergies Allergies/Adverse Reactions: Allergies Allergy/AdvReac Type Severity Reaction Status Date / Time Sulfa (Sulfonamide Allergy Rash Verified 05/01/20 10:44 Antibiotics) - Social History Does the pt smoke?: No Smoking Status: Never smoker Does the pt drink ETOH?: Yes Does the pt have substance abuse?: No - Immunizations Immunizations are current?: Yes - POLST Patient has POLST: No PD ED PE NORMAL - General General: Alert and oriented X 3, No acute distress - Cardiac Cardiac: RRR, No murmur - Respiratory Respiratory: No respiratory distress, Clear bilaterally - Abdomen Abdomen: Normal bowel sounds, Soft - Back Back: No: No spinal TTP (Mild tenderness near the right SI point. Positive straight leg on the right leg. No midline lumbar tenderness or rash noted. Motor strength 5 of 5 bilateral lower extremities. 2+ patellar reflexes sacha.) - Derm Derm: Normal color, Warm and dry, No rash - Extremities Extremities: No deformity - Neuro Neuro: Alert and oriented X 3 Eye Opening: Spontaneous Motor: Obeys Commands Verbal: Oriented GCS Score: 15 Results - Vitals Vitals: Vital Signs - 24 hr 02/27/23 11:54 Temperature 36.7 C Heart Rate 60 Respiratory 17 Rate Blood Pressure 173/65 H O2 Saturation 97 Oxygen O2 Source Room air - Rads (name of study) Lumbar CT Relevant Findings:: Final report received (No acute fractures or subluxation of the lumbar spine. There are moderate spondylitic changes.) PD Medical Decision Making - ED course Complexity details: reviewed results, re-evaluated patient, considered differential, d/w patient ED course: 82-year-old female presents to the emergency department for evaluation of acute on chronic right-sided low back pain. She reports a longstanding history of sciatica with a new flare starting over the last 10 days. Pain radiates down the right leg. She has no saddle anesthesia, loss of bowel or bladder function. She is noted to be able to ambulate with minimal assistance here in the ER using a cane but when given a walker she had a much more steady gait. She denies any falls or trauma. I administered a single dose of Toradol IM here in the ER and on repeat evaluation is nearly pain-free. However given the age and unclear mechanism for back pain a CT was completed to rule out occult fracture or lytic lesions suggestive of cancer. The CT of the lumbar spine did not show any acute fractures. Clinically the patient does not have cauda equina or evidence of an epidural abscess I discussed with patient the etiology of her back pain is likely degenerative disc disease/sciatica. I am encouraging her to take Tylenol and ibuprofen [id number] for discomfort. She is advised to limit the use of ibuprofen to simply a few days or up to a week. She is already in physical therapy which I have advised she can continue. It should be noted that the patient is considering starting Eliquis for paroxysmal A-fib. She was advised to discuss ibuprofen in the setting of Eliquis with her primary care doctor and should she start Eliquis alternative ways to manage her pain should be discussed. Departure - Departure Disposition: 01 Home, Self Care Clinical Impression: Right-sided low back pain with sciatica Qualifiers: Chronicity: acute Sciatica laterality: sciatica of right side Qualified Code(s): M54.41 - Lumbago with sciatica, right side Condition: Stable Record reviewed to determine appropriate education?: Yes Instructions: ED Sciatica Comments: Radha barahona were seen today in the emergency department because for about the last 10 days you have been having increasing pain on the right side of your back radiating down your leg. You have been taught getting Tylenol which is helped a little bit but not brought you the relief you desire. Here in the emergency department we gave you a dose of the medication called Toradol. This is an injectable NSAID medication. After you receive this medicine you reported that your pain was a lot better. We did do a CT of your lumbar spine and do not have any obvious fractures or lytic lesions suggesting cancer. You do well what ever have advanced degenerative changes of the spine though this is not unexpected given your age. It is important that you continue to discuss this ED visit with your primary care doctor. I think it safe for you to continue with physical therapy. At home I would recommend that you take 500 mg of Tylenol once or twice a day or alternate with 600 mg of ibuprofen taken with food also once or twice a day. It is important to discuss taking a medication like ibuprofen with your primary doctor because if you choose to begin taking Eliquis it is not safe to take that blood thinner and an NSAID medication together. Return to the ER if you find that you have any numbness in your genital area, loss of control of your bowel or bladder function. Until this back pain flare resolves I recommend that you always use your walker when ambulating.
--- NOTE | 2023-02-27 15:06 | CT Report ---
PROCEDURE: LUMBAR SPINE WO INDICATIONS: right low back pain; ? sciatica TECHNIQUE: Noncontrast 3 mm thick sections acquired from the T12 level to the sacrum. Sagittal and coronal refo rmats were constructed. For radiation dose reduction, the following was used: automated exposure co ntrol, adjustment of mA and/or kV according to patient size. COMPARISON: None FINDINGS: Image quality: Good Bones: No traumatic subluxation. There is leftward spinal curvature. Moderate degenerative changes, w ith osteophytes, disc space height loss, and facet arthropathy. No acute vertebral body height loss. Multiple levels of at least mild to moderate neural foraminal narrowing in the mid and lower lumbar s pine, worse involving the right, particularly at L4-L5. Soft tissues: Small hiatal hernia. Atrophy of the right lower pole the kidney. Atherosclerotic calcif ications. Colonic diverticula. IMPRESSION: No acute fractures or subluxation of the lumbar spine. There are moderate spondylotic changes. If the re is high concern for further derangement, consider MRI evaluation. Particular narrowing is seen on the right neural foramen at L4-L5. Reviewed by: Gurjit Sepulveda MD on 02/27/2023 3:05 PM PDT Approved by: Gurjit Sepulveda MD on 02/27/2023 3:05 PM PDT Station ID: [id number]
== END 2023-02-27 15:49 | disposition home or self-care (01) ==
LOC: EDUNIT# → ED 11:39
DX: M54.41 Lumbago with sciatica, right side (principal); I48.91 Unspecified atrial fibrillation
CPT/HCPCS: 96372; 99283; 99284

== ENCOUNTER 2023-03-20 12:00 | Outpatient (CLI) | payer MEDICARE, OTHER ==
--- NOTE | 2023-03-20 15:05 | CT Report ---
PROCEDURE: ABDOMEN/PELVIS WO INDICATIONS: HYDRONEPHROSIS. Mild left hydronephrosis was noted on previous ultrasound dated TECHNIQUE: A CT scan of the abdomen and pelvis was performed without the use of intravenous contrast. Images we re recorded and evaluated at appropriate window settings. Reformats: coronal and sagittal. For radiat ion dose reduction, the following was used: automated exposure control, adjustment of mA and/or kV ac cording to patient size. COMPARISON: Renal ultrasound dated 11/27/2022 FINDINGS: Image quality: Excellent. Lung bases and heart: Unremarkable. Liver: No solid mass. Gallbladder and biliary tree: Contracted, within normal limits Spleen: No splenomegaly. Pancreas: No pancreatic ductal dilation. Adrenals: No adrenal nodule. Kidneys and ureters: No hydronephrosis. No renal cystic lesion which requires follow up. No solid mas s. The finding on the previous ultrasound is actually a peripelvic cyst of the left kidney, and not h ydronephrosis. That cyst measures 2.5 cm. There is focal renal cortical volume loss present on the ri ght in 2 separate locations, consistent with chronic sequelae of remote insult. There is a faint 1 mm stone in the upper pole of the right kidney, which is not obstructed. Bowel and peritoneum: No bowel distension. No pathologic free fluid. Scattered diverticulosis without evidence of diverticulitis. Lymph nodes: No central or retroperitoneal adenopathy. Vessels: No infrarenal aortic aneurysm. PELVIS Reproductive organs: Unremarkable. Bladder: Partially decompressed, question mild diffuse wall thickening. Pelvic lymph nodes: No pelvic adenopathy by size criteria. Bones: No aggressive osseous abnormality. Other: No significant ventral or inguinal hernia. IMPRESSION: 1. The finding on the previous ultrasound was actually a peripelvic cysts and not hydronephrosis. The re is no hydronephrosis involving either kidney. 2. Focal areas of cortical volume loss in the right kidney, consistent with remote insult. 3. Question mild bladder wall thickening. Consider possible cystitis. Reviewed by: Shai Casper MD on 03/20/2023 3:04 PM PDT Approved by: Shai Casper MD on 03/20/2023 3:04 PM PDT Station ID: [id number]
== END 2023-03-20 12:01 | disposition home or self-care (01) ==
LOC: DI 12:00
PROVIDERS: ATTEND Physician Assistant Surgical
DX: N13.30 Unspecified hydronephrosis (principal); N32.89 Other specified disorders of bladder; N28.1 Cyst of kidney, acquired; N26.1 Atrophy of kidney (terminal)

== ENCOUNTER 2023-05-01 07:00 | Outpatient (CLI) | payer MEDICARE, OTHER ==
--- NOTE | 2023-05-02 01:30 | XRAY Report ---
PROCEDURE: Ribs w/PA Chest RT INDICATIONS: RIGHT THORAX CONTUSION TECHNIQUE: 3 views of the right ribs were acquired, along with a single view chest. COMPARISON: 09/17/2021 FINDINGS: Surgical changes and devices: None. Bones and chest wall: No fractures or dislocations. No suspicious bony lesions. Age-appropriate deg enerative changes are seen. Overlying soft tissues appear unremarkable. Lungs and pleura: No pleural effusions or pneumothorax. Lungs appear clear. Mediastinum: Mediastinal contours appear normal. Heart size is normal. IMPRESSION: No displaced rib fracture or pneumothorax. If there is strong clinical concern for a post traumatic abnormality that is not seen on this plain f ilm study, then please consider a dedicated chest CT with IV contrast for further evaluation. Reviewed by: Yony Barry MD on 05/02/2023 12:28 AM [facility] Approved by: Yony Barry MD on 05/02/2023 12:28 AM ARI Station ID: [id number]
== END 2023-05-01 23:59 | disposition home or self-care (01) ==
LOC: DI.S 07:00
PROVIDERS: ATTEND Physician Assistant
DX: S20.01XA Contusion of right breast, initial encounter (principal)

== ENCOUNTER 2023-11-30 08:00 | Outpatient (CLI) | payer MEDICARE, OTHER ==
--- NOTE | 2023-11-30 19:30 | XRAY Report ---
PROCEDURE: Chest 2V INDICATIONS: ACUTE COUGH TECHNIQUE: 2 views of the chest were acquired. COMPARISON: 05/01/2023 FINDINGS: Surgical changes and devices: None. Lungs and pleura: No pleural effusions or pneumothorax. Lungs are clear. Mediastinum: Mediastinal contours appear normal. Heart size is normal. Bones and chest wall: No suspicious bony lesions. Overlying soft tissues appear unremarkable. IMPRESSION: No acute cardiopulmonary process. Reviewed by: Shai Casper MD on 11/30/2023 7:29 PM PDT Approved by: Shai Casper MD on 11/30/2023 7:29 PM PDT Station ID: [id number]
== END 2023-11-30 23:59 | disposition home or self-care (01) ==
LOC: DI.S 08:00
PROVIDERS: ATTEND Registered Nurse
DX: R05.1 Acute cough (principal); J34.89 Other specified disorders of nose and nasal sinuses; R50.9 Fever, unspecified

== ENCOUNTER 2023-11-30 08:00 | Outpatient (CLI) | payer MEDICARE, OTHER | END 2023-11-30 08:01 | disposition home or self-care (01) | LOC: LAB.S 08:00 | PROVIDERS: ATTEND Registered Nurse | DX: R50.9 Fever, unspecified (principal) ==

== ENCOUNTER 2023-12-25 11:56 | Outpatient (CLI) | payer MEDICARE, OTHER ==
[2023-12-25 15:13] LABS: BASOPHILS # (AUTO) 0.1 10^3/uL (0.0-0.1); BASOPHILS % (AUTO) 1.3 %; EOSINOPHILS # (AUTO) 0.2 10^3/uL (0.0-0.7); EOSINOPHILS % (AUTO) 3.3 %; HGB - HEMOGLOBIN 13.8 g/dL (12.0-16.0); LYMPHOCYTES # (AUTO) 1.6 10^3/uL (1.5-3.5); LYMPHOCYTES % (AUTO) 29.9 %; MEAN CORPUSCULAR HEMOGLOBIN 31.2 pg (27.0-31.0); MEAN CORPUSCULAR VOLUME 104.1 fL (81.0-99.0); MEAN PLATELET VOLUME 10.4 fL (7.9-10.8); MONOCYTES # (AUTO) 0.6 10^3/uL (0.0-1.0); MONOCYTES % (AUTO) 11.4 %; NEUTROPHILS # (AUTO) 2.8 10^3/uL (1.5-6.6); NEUTROPHILS % (AUTO) 53.9 %; PLT - PLATELET COUNT 212 10^3/uL (130-450); RED BLOOD COUNT 4.42 10^6/uL (4.20-5.40); RED CELL DISTRIBUTION WIDTH 12.8 % (12.0-15.0); WHITE BLOOD COUNT 5.2 x10^3/uL (4.8-10.8)
[2023-12-25 15:32] LABS: ALBUMIN 4.3 g/dL (3.2-5.5); ALBUMIN/GLOBULIN RATIO 1.5 (1.0-2.2); BILIRUBIN,TOTAL 0.7 mg/dL (0.2-1.0); CALCIUM 9.8 mg/dL (8.5-10.3); CREATININE 0.9 mg/dL (0.6-1.3); POTASSIUM 4.3 mmol/L (3.5-4.5); TOTAL PROTEIN 7.2 g/dL (6.4-8.9)
== END 2023-12-25 11:57 | disposition home or self-care (01) ==
LOC: LAB.S 11:56
PROVIDERS: ATTEND Internal Medicine
DX: I10 Essential (primary) hypertension (principal)
CPT/HCPCS: 36415; 80053; 85025

== ENCOUNTER 2024-04-18 12:51 | Outpatient (CLI) | payer MEDICARE, OTHER | END 2024-04-18 12:52 | disposition critical access hospital (66) | LOC: EMS 12:51 | DX: R51.9 Headache, unspecified (principal); W18.39XA Other fall on same level, initial encounter; Y92.003 Bedroom of unspecified non-institutional (private) residence as the place of occurrence of the external cause; R42 Dizziness and giddiness; I10 Essential (primary) hypertension; Z79.01 Long term (current) use of anticoagulants | CPT/HCPCS: A0425; A0429 ==

== ENCOUNTER 2024-04-18 15:39 | Emergency (ER) | payer MEDICARE, OTHER ==
[~2024-04-18 15:39] MED LIST changes: -IOVERSOL 320 100 ML VIAL IVP ONE; +iohexoL-300 100 ML VIAL ONE
[2024-04-18 16:19] LABS: BASOPHILS # (AUTO) 0.1 10^3/uL (0.0-0.1); BASOPHILS % (AUTO) 1.4 %; EOSINOPHILS # (AUTO) 0.1 10^3/uL (0.0-0.7); EOSINOPHILS % (AUTO) 2.1 %; HCT - HEMATOCRIT 44.2 % (37.0-47.0); HGB - HEMOGLOBIN 14.9 g/dL (12.0-16.0); LYMPHOCYTES # (AUTO) 2.1 10^3/uL (1.5-3.5); LYMPHOCYTES % (AUTO) 32.6 %; MEAN CORPUSCULAR HEMOGLOBIN 31.6 pg (27.0-31.0); MEAN CORPUSCULAR HGB CONC 33.7 g/dL (32.0-36.0); MEAN CORPUSCULAR VOLUME 93.8 fL (81.0-99.0); MEAN PLATELET VOLUME 8.9 fL (7.9-10.8); MONOCYTES # (AUTO) 0.6 10^3/uL (0.0-1.0); MONOCYTES % (AUTO) 9.5 %; NEUTROPHILS # (AUTO) 3.5 10^3/uL (1.5-6.6); NEUTROPHILS % (AUTO) 54.4 %; PLT - PLATELET COUNT 183 10^3/uL (130-450); RED BLOOD COUNT 4.71 10^6/uL (4.20-5.40); RED CELL DISTRIBUTION WIDTH 12.4 % (12.0-15.0); WHITE BLOOD COUNT 6.3 x10^3/uL (4.8-10.8)
[2024-04-18 16:20] LABS: ALBUMIN 4.2 g/dL (3.2-5.5); ALBUMIN/GLOBULIN RATIO 1.4 (1.0-2.2); BILIRUBIN,TOTAL 0.7 mg/dL (0.2-1.0); CALCIUM 9.8 mg/dL (8.5-10.3); CREATININE 0.9 mg/dL (0.6-1.3); POTASSIUM 4.2 mmol/L (3.5-4.5); TOTAL PROTEIN 7.2 g/dL (6.4-8.9); TROPONIN I HIGH SENSITIVITY 3.7 ng/L (2.3-14.8)
--- NOTE | 2024-04-18 16:57 | CT Report ---
PROCEDURE: Head WO INDICATIONS: HEAD AND NECK, DIZZY TECHNIQUE: Noncontrast 4.5 mm thick angled axial sections acquired from the foramen magnum to the vertex. For r adiation dose reduction, the following was used: automated exposure control, adjustment of mA and/or kV according to patient size. COMPARISON: Brain MRI dated 05/01/2020. FINDINGS: Image quality: Excellent. CSF spaces: Basal cisterns are patent. No extra-axial fluid collections. Ventricles are normal in size and shape. Brain: No midline shift. No intracranial masses or hemorrhage. [place]-white matter interface is norm al. Intracranial carotid calcifications. Age-related volume loss and small vessel ischemic change. Skull and face: Incidental note made of the presence of hyperostosis frontalis. Calvarium and visual ized facial bones are intact, without suspicious lesions. Sinuses: Visualized sinuses and mastoids are clear. IMPRESSION: No acute intracranial pathology. Reviewed by: Shai Casper MD on 04/18/2024 4:56 PM PDT Approved by: Shai Casper MD on 04/18/2024 4:56 PM PDT Station ID: [id number]
[2024-04-18 16:59] VITALS: O2SAT 100
--- NOTE | 2024-04-18 17:06 | CT Report ---
PROCEDURE: Angio Head/Neck INDICATIONS: HEAD AND NECK, DIZZY TECHNIQUE: After the administration of intravenous contrast, 1 mm thick sections acquired from the aortic arch t hrough the [place]. 3-dimensional bpfcxii-nbxiqbocl-imuwsnlcle (MIP) and/or volume renderin g reformats were acquired of the central intracranial vasculature and neck separately. For radiation dose reduction, the following was used: automated exposure control, adjustment of mA and/or kV acco rding to patient size. CONTRAST: Omni 300 80ml COMPARISON: CT head from the same date. FINDINGS: Image quality: Diagnostic. HEAD CT: CSF Spaces: Basal cisterns are patent. No extra-axial fluid collections. Ventricles are normal in size and shape. Brain: The accompanying CT head demonstrates no acute intracranial process. Skull and face: Calvarium and visualized facial bones appear intact, without suspicious lesions. Sinuses: Visualized sinuses and mastoids are clear. HEAD CT ANGIOGRAPHY: Anterior circulation: Intracranial internal carotid arteries are normal in size and flow. The flow within the paired anterior cerebral arteries is normal and symmetric. The flow within the middle cer ebral arteries is normal and symmetric. The anterior communicating artery is seen. No aneurysms are seen. Posterior circulation: Visualized portions of the vertebral arteries demonstrate normal caliber, and join to form a normal appearing basilar artery. Flow within the posterior cerebral arteries is norm al and symmetric. No aneurysms are seen. NECK CT ANGIOGRAPHY: Carotid system: The great vessels demonstrate a conventional anatomy as they arise from the aortic a rch. The origins of the common carotid arteries appear patent. The common carotid arteries demonstr ate normal caliber and courses. The bifurcation regions are both widely patent. There is a mild prox imal left internal carotid artery stenosis, less than 50%, secondary to a mixture of calcified and no ncalcified plaque. The right internal carotid artery is widely patent. Posterior circulation: The origins of the vertebral arteries both appear widely patent. The more ashraf perior extracranial portions of both vertebral arteries also demonstrate normal courses and calibers. They join to form a normal appearing basilar artery. Soft tissues: Visualized neck soft tissues demonstrate no suspicious abnormalities. Bones: No suspicious bony lesions. Visualized cervical spine appears normally aligned. IMPRESSION: No significant intracranial arterial abnormality is seen. Less than 50% stenosis of the proximal left internal carotid artery with soft plaque present. Widely patent right internal carotid. The estimate of stenosis included in the report of the imaging study was calculated using the NASCET method Reviewed by: Shai Casper MD on 04/18/2024 5:05 PM PDT Approved by: Shai Casper MD on 04/18/2024 5:05 PM PDT Station ID: [id number]
[2024-04-18] MEDS: iohexoL-300 100 ML VIAL IVP ONE (17:23)
--- NOTE | 2024-04-18 17:25 | XRAY Report ---
PROCEDURE: Chest 1V INDICATIONS: DIZZY, GLF TECHNIQUE: One view of the chest was acquired. COMPARISON: 11/30/2023. FINDINGS: Surgical changes and devices: None. Lungs and pleura: No pleural effusions or pneumothorax. Lungs are clear. Mediastinum: Mediastinal contours appear normal. Heart size is normal. Bones and chest wall: No suspicious bony lesions. Overlying soft tissues appear unremarkable. IMPRESSION: No acute cardiopulmonary process. Reviewed by: Shai Casper MD on 04/18/2024 5:24 PM PDT Approved by: Shai Casper MD on 04/18/2024 5:24 PM PDT Station ID: [id number]
[2024-04-18 17:47] VITALS: BP 128/101
--- NOTE | 2024-04-21 11:52 | ED Physician Documentation ---
History of Present Illness - Stated complaint Stated Complaint: GLF/ZALDIVAR - Chief complaint Chief Complaint: General - Additonal information Additional information: 83-year-old female with history of hypertension, hypercholesterolemia, anxiety p resents emergency department for recent gait impairment. Patient says that she has been feeling off balance and unstable on her feet lately as she is then switched from one anticoagulant to the next hoping this would help and it has not alleviated any of the symptoms. Patient says last night she fell out of bed no loss of consciousness did not hit her head but she called the anticoagulant clinic and they told her to come to the emergency department for further evaluation. PD PAST MEDICAL HISTORY - Past Medical History Cardiovascular: Hypertension, High cholesterol, Other Respiratory: None Neuro: None Endocrine/Autoimmune: None GI: None OPTICAL LAB TECHNICIAN: None : None HEENT: None Psych: Anxiety Musculoskeletal: None Derm: None - Past Surgical History Past Surgical History: Yes General: Appendectomy /OPTICAL LAB TECHNICIAN: section Cardiovascular: Other - Present Medications Home Medications: Ambulatory Orders Medication Instructions Recorded Confirmed Amlodipine Besylate [Norvasc] 2.5 mg PO DAILY 02/27/23 02/27/23 Losartan/Hydrochlorothiazide 1 each PO DAILY 02/27/23 02/27/23 [Losartan-Hctz 100-12.5 mg Tab] - Allergies Allergies/Adverse Reactions: Allergies Allergy/AdvReac Type Severity Reaction Status Date / Time Sulfa (Sulfonamide Allergy Rash Verified 05/01/20 10:44 Antibiotics) - Social History Does the pt smoke?: No Smoking Status: Never smoker Does the pt drink ETOH?: Yes Does the pt have substance abuse?: No - Immunizations Immunizations are current?: Yes - POLST Patient has POLST: No PD ED PE NORMAL - Vitals Vital signs reviewed: Yes - General General: Alert and oriented X 3, No acute distress, Well developed/nourished - HEENT HEENT: Atraumatic, PERRL, EOMI, Moist mucous membranes - Neck Neck: C-Spine cleared by NEXUS criteria - Cardiac Cardiac: RRR - Respiratory Respiratory: No respiratory distress - Abdomen Abdomen: Normal bowel sounds - Derm Derm: Normal color, Warm and dry, No rash - Extremities Extremities: No deformity, No tenderness to palpate, Normal ROM s pain, No edema, No calf tenderness / cord - Neuro Neuro: Alert and oriented X 3, immunohematologist 2-12 intact, No motor deficit, No sensory deficit, Normal speech Eye Opening: Spontaneous Motor: Obeys Commands Verbal: Oriented GCS Score: 15 - Psych Psych: Normal mood Results - Vitals Vitals: Oxygen O2 Source Room air - Labs Labs: Laboratory Tests 04/18/24 04/18/24 14:50 14:50 WBC 6.3 RBC 4.71 Hgb 14.9 Hct 44.2 MCV 93.8 MCH 31.6 H MCHC 33.7 RDW 12.4 Plt Count 183 MPV 8.9 Neut # (Auto) 3.5 Lymph # (Auto) 2.1 [place] # (Auto) 0.6 Eos # (Auto) 0.1 Baso # (Auto) 0.1 Absolute Nucleated RBC 0.00 Nucleated RBC % 0.0 Sodium 139 Potassium 4.2 Chloride 105 Carbon Dioxide 28 Anion Gap 6.0 BUN 16 Creatinine 0.9 Estimated GFR (MDRD) 60 L Glucose 94 Calcium 9.8 Total Bilirubin 0.7 AST 15 ALT 16 Alkaline Phosphatase 86 Troponin I High Sens 3.7 Total Protein 7.2 Albumin 4.2 Globulin 3.0 Albumin/Globulin Ratio 1.4 Lipase 35 - Rads (name of study) Head CT Relevant Findings:: Final report received, EMP independent interpretation of test, Other (No acute intracranial abnormalities or findings) Chest x-ray Relevant Findings:: Final report received, EMP independent interpretation of test, Other (No acute cardiopulmonary abnormalities or findings) Angio head and neck CT Relevant Findings:: Final report received, EMP independent interpretation of test, Other (No significant intracranial arterial abnormalities) PD Medical Decision Making - ED course ED course: 83-year-old female presents emergency department for gait impairment and recent fall she not hit her head no loss of conscious but is anticoagulated on blood thinners. Workup was found to be unremarkable labs do not show any leukocytosis or anemia no electrolyte abnormalities. Head CT is complete as well as angio head and neck was also complete with no acute intracranial or arterial abnormalities chest x-ray also completed and again no abnormalities were visualized. Patient was told to follow-up with her primary care provider for possible neurology referral for further evaluation of why she has been having some gait impairment return precautions given patient safer discharge at this time. Departure - Departure Disposition: 01 Home, Self Care Clinical Impression: Gait disturbance, Ground-level fall Condition: Stable Instructions: ED Fall Uncertain Cause, ED Prevention Fall Comments: Thank you for your patience in the emergency department today. We have complete d labs as well as a head CT and we are not seeing any acute abnormalities or findings at this point in time I have copied and pasted the radiology notes below for your reading. Please follow-up with your primary care provider as soon as possible and let them know about today's ER visit and the off balance you are feeling with ambulation and discussed the possibility of possible Parkinson's as well as your tremors. Please come back to the ER if you are having any worsening symptoms chest pain nausea vomiting or any other concerning emergent symptoms. PT NAME: ALHAJI DYSON MR#: [id number] REG ER/ED AGE: 83 CI DT/TM: 04/18/24 PCP: Hafsa Rubio MD : 1940 ATT: SEX: F ORD: Jose Merritt [employer] [employer] EXAM: [id number] CT/HEADWO ([id number]) PROCEDURE: Head WO INDICATIONS: HEAD AND NECK, DIZZY TECHNIQUE: Noncontrast 4.5 mm thick angled axial sections acquired from the foramen magnum to the vertex. For radiation dose reduction, the following was used: automated exposure control, adjustment of mA and/or kV according to patient size. COMPARISON: Brain MRI dated 05/01/2020. FINDINGS: Image quality: Excellent. CSF spaces: Basal cisterns are patent. No extra-axial fluid collections. Ventricles are normal in size and shape. Brain: No midline shift. No intracranial masses or hemorrhage. [place]-white matter interface is normal. Intracranial carotid calcifications. Age-related volume loss and small vessel ischemic change. Skull and face: Incidental note made of the presence of hyperostosis frontalis. Calvarium and visualized facial bones are intact, without suspicious lesions. Sinuses: Visualized sinuses and mastoids are clear. IMPRESSION: No acute intracranial pathology. CONTRAST: Omni 300 80ml COMPARISON: CT head from the same date. FINDINGS: Image quality: Diagnostic. HEAD CT: CSF Spaces: Basal cisterns are patent. No extra-axial fluid collections. Ventricles are normal in size and shape. Brain: The accompanying CT head demonstrates no acute intracranial process. Skull and face: Calvarium and visualized facial bones appear intact, without suspicious lesions. Sinuses: Visualized sinuses and mastoids are clear. HEAD CT ANGIOGRAPHY: Anterior circulation: Intracranial internal carotid arteries are normal in size and flow. The flow within the paired anterior cerebral arteries is normal and symmetric. The flow within the middle cerebral arteries is normal and symmetric. The anterior communicating artery is seen. No aneurysms are seen. Posterior circulation: Visualized portions of the vertebral arteries demonstrate normal caliber, and join to form a normal appearing basilar artery. Flow within the posterior cerebral arteries is normal and symmetric. No aneurysms are seen. NECK CT ANGIOGRAPHY: Carotid system: The great vessels demonstrate a conventional anatomy as they arise from the aortic arch. The origins of the common carotid arteries appear patent. The common carotid arteries demonstrate normal caliber and courses. The bifurcation regions are both widely patent. There is a mild proximal left internal carotid artery stenosis, less than 50%, secondary to a mixture of calcified and noncalcified plaque. The right internal carotid artery is widely patent. Posterior circulation: The origins of the vertebral arteries both appear widely patent. The more superior extracranial portions of both vertebral arteries also demonstrate normal courses and calibers. They join to form a normal appearing basilar artery. Soft tissues: Visualized neck soft tissues demonstrate no suspicious abnormalities. Bones: No suspicious bony lesions. Visualized cervical spine appears normally aligned. IMPRESSION: No significant intracranial arterial abnormality is seen. Less than 50% stenosis of the proximal left internal carotid artery with soft plaque present. Widely patent right internal carotid. The estimate of stenosis included in the report of the imaging study was calculated using the NASCET method Forms: PCP List Discharge Date/Time: 04/18/24 17:35
== END 2024-04-18 17:35 | disposition home or self-care (01) ==
LOC: ED 15:39
DX: Z04.3 Encounter for examination and observation following other accident (principal); R26.9 Unspecified abnormalities of gait and mobility
CPT/HCPCS: 36415; 70450; 70496; 70498; 71045; 80053; 83690; 84484; 85025; 99283; 99284; Q9967; 81001; 81003

== ENCOUNTER 2024-05-10 14:32 | Outpatient (CLI) | payer MEDICARE, OTHER ==
--- NOTE | 2024-05-10 16:05 | Ultrasound Report ---
PROCEDURE: Renal (Retroperitoneal) INDICATIONS: NEPHROLITHIASIS TECHNIQUE: Real-time scanning was performed of the retroperitoneal organs, with image documentation. COMPARISON: Renal ultrasound dated 11/27/2022, CT abdomen and pelvis without contrast dated 03/20/2023 FINDINGS: Kidneys: Kidneys are normal in size. Right kidney measures 7.9 cm long; left kidney measures 9.4 cm long. Right renal cortical thickness is 1.0 cm; left renal cortical thickness is 1.7 cm. No solid masses, hydronephrosis, or nephrolithiasis. There are left lower pole peripelvic cysts. No hydronephr osis. Bladder: Pre-void bladder volume is 153.4 mL. Post-void residual is 8.16 mL. Pre-void images demon strate no intraluminal masses or stones. On pre-void images, bilateral ureteral jets are noted with color Doppler interrogation. (Of note, ureteral jets may not be detectable in up to 25% of cases due to insufficient differences in specific gravity between ureteral and bladder urine). Miscellaneous: No free abdominal fluid. IMPRESSION: 1. Right kidney is somewhat atrophied. Left kidney is normal in size. 2. No hydronephrosis. No identified renal stones. Reviewed by: Shai Casper MD on 05/10/2024 4:03 PM PDT Approved by: Shai Casper MD on 05/10/2024 4:03 PM PDT Station ID: [id number]
== END 2024-05-10 14:33 | disposition home or self-care (01) ==
LOC: DI 14:32
PROVIDERS: ATTEND Physician Assistant Surgical
DX: N26.1 Atrophy of kidney (terminal) (principal)